=== PATIENT | male | born 1995 | race Caucasian/White ===

== ENCOUNTER 2017-10-14 05:08 | Emergency (ER) | payer SELFPAY ==
[2017-10-14 05:09] VITALS: BP 136/90
--- NOTE | 2017-10-14 05:19 | ER Report ---
History and Physical Time Seen By MD: 05:14 Hx. of Stated Complaint: LONGTERM CLEARANCE HPI/ROS CHIEF COMPLAINT: Correction clearance HISTORY OF PRESENT ILLNESS: 22-year-old male brought in by police for usp clearance. Patient voices no complaints. He voices no past medical history. REVIEW OF SYSTEMS: Respiratory: No cough, no dyspnea. Cardiovascular: No chest pain, no palpitations. Gastrointestinal: No vomiting, no abdominal pain. Musculoskeletal: No back pain. Allergies: Coded Allergies: azithromycin (Verified Allergy, Unknown, 10/14/17) Home Meds No Active Prescriptions or Reported Meds Reviewed Nurses Notes: Yes Old Medical Records Reviewed: Yes Hx Substance Use Disorder: No Hx Alcohol Use: No Constitutional Vital Sign - Last 24 Hours 10/14/17 05:09 Temp 97.9 Pulse 100 Resp 16 B/P (MAP) 136/90 Pulse Ox 94 O2 Delivery Room Air Physical Exam General Appearance: The patient is alert, has no immediate need for airway protection and no current signs of toxicity. Vital signs stable, afebrile, no tenderness to palpation of the head or neck. HEENT: Pupils equal and round no injection. Oropharynx without redness or exudate, mucous members are moist Respiratory: Chest is non tender, lungs are clear to auscultation. Cardiac: regular rate and rhythm Gastrointestinal: Abdomen is soft and non tender, no masses, bowel sounds normal. Musculoskeletal: Neck: Neck is supple and non tender. No lymphadenopathy Extremities have full range of motion and are non tender. Skin: No rashes or lesions. DIFFERENTIAL DIAGNOSIS: After history and physical exam differential diagnosis was considered for usp clearance, polysubstance abuse, alcohol intoxication Medical Decision Making ED Course/Re-evaluation ED Course Patient was admitted to an examination room. H&P was done. The differential diagnoses was considered. On conical examination. Patient has no findings. He voices no complaints. His vital signs are stable. He is medically cleared for usp admission. Decision to Disposition Date: October 14, 2017 Decision to Disposition Time: 05:16 Depart Departure Latest Vital Signs Vital Signs Date Time Temp Pulse Resp B/P (MAP) Pulse Ox O2 Delivery O2 Flow Rate FiO2 10/14/17 05:09 97.9 100 16 136/90 94 Room Air Impression: Primary Impression: Medical clearance for incarceration Additional Impression: Alcohol intoxication Condition: Improved Disposition: HOME OR SELF-CARE New Scripts No Active Prescriptions or Reported Meds Patient Instructions: Alcohol Intoxication (ED) Additional Instructions: Medical clearance for usp admission Problem Qualifiers Additional Impression: Alcohol intoxication Complication of substance-induced condition: uncomplicated Qualified Codes: F10.920 - Alcohol use, unspecified with intoxication, uncomplicated NINI AMOS DO October 14, 2017 05:19
== END 2017-10-14 05:23 ==
LOC: ER 05:15
DX: F10.920 Alcohol use, unspecified with intoxication, uncomplicated (principal)
CPT/HCPCS: 99282

== ENCOUNTER 2018-09-30 02:50 | Emergency (ER) | payer OTHER ==
[2018-09-30 02:51] VITALS: BP 123/94
--- NOTE | 2018-09-30 02:54 | ER Report ---
History and Physical Time Seen By MD: 02:51 Hx. of Stated Complaint: LONG-TERM CLEARANCE HPI/ROS CHIEF COMPLAINT: Long Term clearance HISTORY OF PRESENT ILLNESS: 23-year-old male brought in by police for penitentiary clearance. Patient appears grossly intoxicated. He has an abrasion on his left anterior neck.. Patient states his tetanus status is up-to-date. Patient denies headache, vomiting or significant medical problems. Patient denies any complaints. REVIEW OF SYSTEMS: Respiratory: No cough, no dyspnea. Cardiovascular: No chest pain, no palpitations. Gastrointestinal: No vomiting, no abdominal pain. Musculoskeletal: No back pain. Allergies: Coded Allergies: azithromycin (Verified Allergy, Unknown, 10/14/17) Home Meds No Active Prescriptions or Reported Meds Reviewed Nurses Notes: Yes Old Medical Records Reviewed: Yes Hx Substance Use Disorder: No Hx Alcohol Use: No Constitutional Vital Sign - Last 24 Hours 09/30/18 02:51 Temp 98.7 Pulse 90 Resp 17 B/P (MAP) 123/94 Pulse Ox 93 O2 Delivery Room Air Physical Exam General Appearance: The patient is alert, has no immediate need for airway protection and no current signs of toxicity. A patient of the head and neck reveals no tenderness or trauma HEENT: Pupils equal and round no injection. TMs normal, oropharynx without dental trauma Respiratory: Chest is non tender, lungs are clear to auscultation. Cardiac: regular rate and rhythm Gastrointestinal: Abdomen is soft and non tender, no masses, bowel sounds normal. Musculoskeletal: Neck: Neck is supple and non tender. There is a large abrasion over the left anterior sternocleidomastoid region. There is no deep tenderness on palpation Extremities have full range of motion and are non tender. Skin: No rashes or lesions. DIFFERENTIAL DIAGNOSIS: After history and physical exam differential diagnosis was considered for penitentiary clearance, alcohol intoxication, polysubstance abuse Medical Decision Making ED Course/Re-evaluation ED Course Patient was admitted to an examination room. H&P was done. The differential diagnoses was considered. On clinical examination, patient appears grossly intoxicated. He voices no complaints. His vital signs are stable. He does have an abrasion on his neck. He states his tetanus status is up-to-date. Patient's medically cleared for penitentiary admission. Decision to Disposition Date: Sep 30, 2018 Decision to Disposition Time: 02:54 Depart Departure Latest Vital Signs Vital Signs Date Time Temp Pulse Resp B/P (MAP) Pulse Ox O2 Delivery O2 Flow Rate FiO2 09/30/18 02:51 98.7 90 17 123/94 93 Room Air Impression: Primary Impression: Medical clearance for incarceration Additional Impression: Alcohol intoxication Condition: Improved Disposition: [facility] TO LONG-TERM/CORRECTIONAL F New Scripts No Active Prescriptions or Reported Meds Patient Instructions: Alcohol Intoxication (ED) Additional Instructions: Medically cleared for penitentiary admission Problem Qualifiers Additional Impression: Alcohol intoxication Complication of substance-induced condition: uncomplicated Qualified Codes: F10.920 - Alcohol use, unspecified with intoxication, uncomplicated NINI AMOS DO Sep 30, 2018 02:54
== END 2018-09-30 02:59 ==
LOC: ER 02:54
DX: F10.920 Alcohol use, unspecified with intoxication, uncomplicated (principal)
CPT/HCPCS: 99281